=== PATIENT | female | born 1985 | race Caucasian/White ===

== ENCOUNTER 2016-09-08 20:42 | Emergency (ER) | payer BC ==
[2016-09-08 20:46] VITALS: BP 118/74; PULSE 88; RESP 16; TEMP 98.3; O2SAT 100
[2016-09-08] MEDS ORDERED: Lidocaine 1% Inj (20ml) ONE (21:45)
--- NOTE | 2016-09-08 22:22 | ED PDOC ---
HPI: Skin/Bite Injury Time Seen by Provider: 09/08/16 21:13 Chief Complaint (Nursing): Abnormal Skin Integrity Chief Complaint (Provider): Laceration, left hand History Per: Patient History/Exam Limitations: no limitations Onset/Duration Of Symptoms: Mins Current Symptoms Are (Timing): Still Present Quality Of Symptoms: Painful Past Medical History Vital Signs: Last Vital Signs Temp 98.3 F 09/08/16 20:44 Pulse 88 09/08/16 20:44 Resp 16 09/08/16 20:44 BP 118/74 09/08/16 20:44 Pulse Ox 100 09/08/16 20:44 - Allergies Allergies/Adverse Reactions: Allergies Allergy/AdvReac Type Severity Reaction Status Date / Time No Known Allergies Allergy Verified 09/08/16 20:43 - ECG O2 Sat by Pulse Oximetry: 100 Disposition - Clinical Impression Clinical Impression: Finger laceration Counseled Patient/Family Regarding: Diagnosis, Need For Followup - Disposition Referrals: [facility] [place] [facility] [Outside] Disposition: Routine/Home Disposition Time: 22:17 Condition: GOOD Additional Instructions: Do not get wet gor 24-48 hours. Keep clean and dry with antibiotic ointment. Instructions: Care For Your Absorbable Stitches (ED)
== END 2016-09-08 22:25 | disposition home or self-care (01) ==
LOC: H.ER 20:42
DX: S61.412A Laceration without foreign body of left hand, initial encounter (principal); W26.0XXA Contact with knife, initial encounter; Y92.89 Other specified places as the place of occurrence of the external cause